=== PATIENT | female | born 1980 | race Caucasian/White ===

== ENCOUNTER 2017-01-28 15:07 | Emergency (ER) | payer MEDICAID ==
[2017-01-28 17:11] LABS: BASOPHIL % 0.3 % (0-2); PLATELET COUNT 232 x10^3mcL (130-400)
[2017-01-28 18:08] LABS: UA SPECIFIC GRAVITY 1.025 (1.005-1.035); microscopic required? YES; urine erythrocyte 1+ (NEGATIVE)
[2017-01-28 18:30] VITALS: BP 156/77
== END 2017-01-28 18:30 | disposition home or self-care (01) ==
LOC: ED 15:07
PROVIDERS: Emergency Medicine Emergency Medical Services
DX: O02.1 Missed abortion (principal); I10 Essential (primary) hypertension; Z3A.01 Less than 8 weeks gestation of pregnancy
CPT/HCPCS: 36415

== ENCOUNTER 2020-02-01 14:55 | Emergency (ER) | payer SELFPAY ==
[~2020-02-01] VITALS: Ht 152.4 cm; Wt 74.4 kg
[2020-02-01 17:03] VITALS: BP 144/101; Ht 152.4 cm; Wt 74.4 kg
== END 2020-02-01 17:04 | disposition home or self-care (01) ==
LOC: ED 14:55
DX: B34.9 Viral infection, unspecified (principal); I10 Essential (primary) hypertension; Z20.828 Contact with and (suspected) exposure to other viral communicable diseases
CPT/HCPCS: U0003-CS